=== PATIENT | male | born 1970 | race Caucasian/White ===

== ENCOUNTER 2020-08-09 17:36 | Emergency (ER) | payer OTHER, SELFPAY ==
[2020-08-09 17:44] VITALS: BP 156/97; PULSE 73; RESP 16; TEMP 36.7; O2SAT 99; BMI 27.1
--- NOTE | 2020-08-09 18:30 | ED_ITS ---
HPI - Wound/Laceration General Chief Complaint: Wound/Laceration Stated Complaint: laceration Source: patient Mode of arrival: ambulatory Limitations: no limitations History of Present Illness HPI narrative: Patient presents to ED for left index finger laceration due to snow brush that made of aluminum. Patient states last tetanus shot was more than 5 years. Patient states able to flex and extend finger and has no numbness or tingling. Related Data Allergies Allergy/AdvReac Type Severity Reaction Status Date / Time amoxicillin Allergy Rash Verified 08/09/20 17:46 Penicillins [PCN] Allergy Rash Verified 08/09/20 17:46 Review of Systems Review of Systems: Yes all other systems are reviewed and are negative Constitutional: Constitutional: Reports as per HPI and Reports no additional constitutional complaints Eyes: Eyes: Reports as per HPI and Reports no additional eye complaints ENT: Reports system reviewed and no additional complaints, except as documented and Reports as per HPI Cardiovascular: Cardiovascular: Reports as per HPI and Reports no additional cardiovascular complaints Respiratory: Respiratory: Reports as per HPI and Reports no additional respiratory complaints Gastrointestinal: Gastrointestinal: Reports as per HPI and Reports no a dditional gastrointestinal complaints Genitourinary: Genitourinary: Reports no additional male genitourinary complaints and Reports as per HPI Musculoskeletal: Musculoskeletal: Reports no additional musculoskeletal compl aints and Reports as per HPI Comments: Left index finger laceration Neurologic: Reports system reviewed and no additional complaints, except as documented and Reports as per HPI [facility] Past Medical History Medical History No known health problems Social History Social History Smoking Status: Never smoker Use of substances other than those prescribed or required for medical reasons: No Advance Directives: No Advance Directives Information Provided: No Physical Exam Vital Signs: Vital Signs: Last Vital Signs Temp 98.0 F 08/09/20 17:44 Pulse 73 08/09/20 17:44 Resp 16 08/09/20 17:44 BP 156/97 H 08/09/20 17:44 Pulse Ox 99 08/09/20 17:44 Body Mass Index 27.1 Const: General: cooperative, healthy appearing, comfortable, no acute distress, well developed, alert and awake Orientation/consciousness: patient oriented x3 HENMT: Head: Yes normal to inspection, Yes No palpable skull fracture present, Yes normocephalic, Yes atraumatic, No abrasion, No Christianson's sign, No contusion, No cranial bruits, No hematoma, No laceration, No occipital foramen tenderness, No palpable skull fracture, No raccoon eyes, No scalp tenderness, No Temporal artery tenderness present and No periorbital ecchymosis Eyes: General: appearance normal, both eyes and all related structures Neck: Neck: Yes normal visual inspection, Yes full ROM, Yes no lymphadenopathy, Yes no meningeal signs, Yes trachea midline, Yes supple and No tender Chest: Chest palpation & inspection: normal inspection of the chest and normal palpation of entire chest wall Resp: Effort & Inspection: normal respiratory effort and able to speak in complete sentences Auscultation: clear to auscultation bilaterally Cardio: Jugular venous distension: no JVD Heart sounds: S1 normal heart sound present and S2 normal heart sound present GI: Inspection: Yes normal to inspection and No abdominal wall ecchymosis Palpation (GI): Soft to palpation, not firm, nontender, no guarding and not rigid : General: No CVA tenderness and Yes no CVA tenderness Back/Spine/Pelvis: Back: no CVA tenderness, No CVA tenderness and No back tenderness Skin: Other: Left index superficial laceration on Edwards aspect of the DIP. The skin is dee, , friable and nonviable. Patient has complete flexion and extension of left index finger. Rest of hand negative for signs of trauma. Capillary refill of fingers intact. Radial pulse intact. Negative for signs of tendon injury. Motor/neuro/vascular exam is intact Right hand normal and motor/neuro/vascular exam is intact. General skin exam: no rashes or lesions noted and elasticity normal Neuro: General: patient oriented x3, no meningeal signs and CN's II-XI intact bilaterally Cranial nerves: Yes CN's II-XII intact bilaterally Extrem: Other: Left index laceration at the palm aspect of DIP. Laceration is very superficial. Skin is , agree, and nonviable. Skin is friable. No indication for laceration repair. Patient has complete flexion and extending of left index finger. Negative for signs of tendon injury. Capillary refill intact. Negative for nail bed injury. Rest of hand normal negative for signs of trauma. General: Yes normal to inspection and Yes full ROM Psych: Appearance: grossly normal, well kempt and not disheveled Course Course Course Narrative: Superficial laceration repair. X-ray not indicated. Reevaluation(s) Reevaluation #1: Laceration repair not indicated. Skin is , dee, friable, and nonviable. Patient informed when this occurred skin would just fall off. Patient will be given tetanus injection. Laceration will be clean by nurse and xerform will be placed from a pressure dressing will be placed. Time: 18:43 MDM - Wound/Laceration MDM Narrative Medical decision making narrative: Superficial laceration Discharge Plan Discharge Clinical Impression: Laceration Patient Disposition: Home, Self-Care Instructions: Laceration Without Closure (ED) Additional Instructions: Return to ED for any swelling, redness, pus discharge, fever, chills, or any other concerning symptoms. Take [id number] Motrin or Tylenol for pain Interventions: ED Discharge Assessment Last Done: 08/09/20 19:25 Discharge Date/Time: 08/09/20 19:27 Print Language: Citizen Of [place]
== END 2020-08-09 19:27 | disposition home or self-care (01) ==
PROVIDERS: Emergency Provider Internal Medicine
DX: S61.211A Laceration without foreign body of left index finger without damage to nail, initial encounter (principal); W45.8XXA Other foreign body or object entering through skin, initial encounter; Y93.29 Activity, other involving ice and snow; Y92.014 Private driveway to single-family (private) house as the place of occurrence of the external cause; Y99.9 Unspecified external cause status
CPT/HCPCS: 90471; 90715; 99284

== ENCOUNTER 2023-04-09 13:21 | Emergency (ER) | payer OTHER, SELFPAY ==
[2023-04-09 13:28] VITALS: BP 132/102; PULSE 74; RESP 18; TEMP 36.8; O2SAT 97; BMI 29.4
--- NOTE | 2023-04-09 13:29 | ED.GENADULT ---
HPI - General Adult General Chief complaint: Back Pain/Injury Stated complaint: Back pain Time Seen by Provider: 04/09/23 14:07 Source: patient Mode of arrival: ambulatory Limitations: no limitations History of Present Illness HPI narrative: 52-year-old male previously healthy here with complaints of right lower back pain with radiation of the right leg since with no known injury or trauma. Patient reports he has been taking ibuprofen, Flexeril at night time, alternating he denies with continued symptoms. No numbness in the groin. No numbness or tingling in the legs. No bowel or bladder incontinence. No fevers or chills. Patient is ambulatory. Related Data Previous Rx's Medication Instructions Recorded ibuprofen 600 mg tablet 600 mg PO Q8H PRN pain #30 tabs 04/09/23 lidocaine 5 % topical patch 1 patch topical DAILY #15 ea 04/09/23 (Lidoderm) Allergies Allergy/AdvReac Type Severity Reaction Status Date / Time amoxicillin Allergy Rash Verified 08/09/20 17:46 Penicillins [PCN] Allergy Rash Verified 08/09/20 17:46 Review of Systems Review of Systems: Yes all other systems are reviewed and are negative Constitutional: Constitutional: Reports no additional constitutional complaints, Denies body ache(s), Denies chills, Denies fever(s), Denies headache(s) and Denies weakness Eyes: Eyes: Reports no additional eye complaints and Denies change in vision ENT: Reports system reviewed and no additional complaints, except as documented, Denies dizziness, Denies headache(s), Denies nasal congestion, Denies nasal discharge and Denies neck pain Cardiovascular: Cardiovascular: Reports no additional cardiovascular complaints, Denies chest pain, Denies leg edema and Denies dyspnea Respiratory: Respiratory: Reports no additional respiratory complaints, Denies cough and Denies dyspnea Gastrointestinal: Gastrointestinal: Reports no additional gastrointestinal complaints, Denies abdominal pain, Denies diarrhea, Denies nausea and Denies vomiting Genitourinary: Genitourinary: Denies urinary incontinence Musculoskeletal: Musculoskeletal: Reports no additional musculoskeletal complaints, Reports back pain, Denies arthralgias, Denies joint swelling, Denies neck pain, Denies numbness, Reports radiating pain into limb and Denies tingling Integumentary/Breasts: Skin/Breast: Reports system reviewed and no additional complaints, except as docu and Denies rash Neurologic: Reports system reviewed and no additional complaints, except as documented, Denies Abnormal speech present, Denies dizziness, Denies headache(s), Denies numbness, Denies tingling and Denies weakness PMFSH Past Medical History Attestation statement: The following information was validated with the patient. Source: old records reviewed and nursing notes reviewed Medical History No known health problems Social History Social History Advance Directives: No Advance Directives Information Provided: Yes Physical Exam ED Vital Signs: Vital Signs - 24 hr 04/09/23 13:28 Temperature 98.3 F Pulse Rate 74 Respiratory Rate 18 Blood Pressure 132/102 H Pulse Oximetry 97 Oxygen Delivery Method Room Air BMI result Body Mass Index 29.4 Const General: cooperative, healthy appearing, comfortable and no acute distress Orientation/consciousness: patient oriented x3 Limitations: no limitations HENMT Head: Yes normal to inspection Ears: hearing grossly normal bilaterally General nose exam: Normal external nose present Face and sinus: Yes normal facial exam Mouth: Normal oral and palatal mucosa present Throat: Yes posterior oropharynx normal Eyes General: appearance normal, both eyes and all related structures Pupils: Equal, round and reactive pupils present Neck Neck: Yes normal visual inspection Chest Chest palpation & inspection: normal inspection of the chest Resp Effort & Inspection: normal respiratory effort Auscultation: clear to auscultation bilaterally Cardio Rate: regular rate Rhythm: regular rhythm Peripheral pulses: Peripheral pulses 2+ throughout GI Inspection: Yes normal to inspection Palpation (GI): Soft to palpation and nontender Auscultation: normal bowel sounds Back/Spine/Pelvis Other: Tenderness to the right lumbar paraspinal area with no midline tenderness, step-offs deformities. Pain is worsened with right straight leg raise. Thoracic/Lumbar Spine: thoracic and lumbar spine normal to inspection Skin General skin exam: no rashes or lesions noted Neuro General: patient oriented x3, moves all extremities, no focal motor deficits and normal sensation to monofilament Cranial nerves: Yes CN's II-XII intact bilaterally, Yes Equal, round and reactive pupils present, Yes Bilaterally intact EOM present, Yes Nystagmus not present, Yes Normal facial strength present and Yes Midline tongue present Cognition (Neuro): normal cognition Speech: No Abnormal speech present Gait exam (Neuro): Normal gait present Motor exam (neuro): 5/5 motor strength present throughout Sensory Exam: Normal double simultaneous stimulation for sensation Deep tendon reflexes (DTR's): Right patellar reflex intensity grade: 2+ and Left patellar reflex intensity grade: 2+ Extrem General: Yes normal to inspection Course Course Course Narrative: RME: right lower back pain radiating leg. patient head three cracks in lumbar spine. Spine xray ordered. Medical Decision Making Medical Decision Making [facility] Narrative: 52-year-old male previously healthy here with complaints of right lower back pain with radiation of the right leg since with no known injury or trauma. Patient reports he has been taking ibuprofen, Flexeril at night time, alternating he denies with continued symptoms. No numbness in the groin. No numbness or tingling in the legs. No bowel or bladder incontinence. No fevers or chills. Patient is ambulatory. Tenderness to the right lumbar paraspinal area with no midline tenderness, step-offs deformities. Pain is worsened with right straight leg raise. Normal neurological exam with no focal deficits. Likely lumbar radiculopathy. Patient has Flexeril with him. We recommend that he could take it 3 times a day as needed. Will also recommend adding had said and medicated patches as needed. Reviewed worrisome signs and symptoms of when to return to the emergency room. Comfortable plan for discharge home. Differential Diagnosis Differential Diagnoses: The differential diagnosis associated with the presentation includes Lumbar radiculopathy low concern for cord compression, cauda equina, epidural abscess, malignancy with normal neuro exam with no focal deficits, no history of IV drug abuse or immunocompromised state low concern for fracture with no reports of trauma Admission/Observation Consideration of admission/observation: Escalation of care including admission/observation considered low concern for cord compression, cauda equina, epidural abscess, malignancy with normal neuro exam with no focal deficits so no need for advanced imaging, emergent neurosurgery consultation and or admission or transfer to tertiary care center Tests considered The following testing was considered but not selected: low concern for cord compression, cauda equina, epidural abscess, malignancy with normal neuro exam with no focal deficits so no need for advanced imaging Prescription Management I considered prescription management with: Pain Medication Discharge Plan Discharge Clinical Impression: Lumbar radiculopathy Patient Disposition: Home, Self-Care Instructions: Lumbar Radiculopathy (ED) Additional Instructions: Heat or ice Gentle stretching No heavy lifting or bending Continue the Flexeril 3 times a day as needed Take the prescribed medications as needed follow-up with primary care doctor for any continued symptoms. Prescriptions: New ibuprofen 600 mg tablet 600 mg PO Q8H PRN (Reason: pain) Qty: 30 0RF lidocaine [Lidoderm] 5 % adhesive patch,medicated 1 patch topical DAILY Qty: 15 0RF Rx Instructions: leave on most painful area for up to 12 hrs Referrals: Roby Pelayo III, MD [Primary Care Provider] - 5 days Stand Alone Forms: Work/School Release Interventions: ED Discharge Assessment Last Done: 04/09/23 14:46 Discharge Date/Time: 04/09/23 14:46
== END 2023-04-09 14:46 | disposition home or self-care (01) ==
PROVIDERS: Emergency Provider Emergency Medicine; PCP Internal Medicine
DX: M54.16 Radiculopathy, lumbar region (principal); M54.50 Low back pain, unspecified
CPT/HCPCS: 99282

== ENCOUNTER 2023-09-24 11:08 | Emergency (ER) | payer BC, SELFPAY ==
--- NOTE | 2023-09-24 11:13 | ED_ITS ---
HPI - Skin/Abscess/Foreign Bdy General Chief complaint: Skin/Abscess/Foreign Body Stated complaint: Infection on chin Time Seen by Provider: 09/24/23 11:18 Source: patient and RN notes reviewed Mode of arrival: ambulatory Limitations: no limitations History of Present Illness HPI narrative: 52 year old male presents to the ED for evaluation of infection to chin x2 days. Patient states that this often occurs. He admits that he is typically evaluated at urgent care and placed on antibiotics with resolution. He began noticing some swelling to his chin approximately 2 days ago and decided to come in for evaluation. Denies drainage from the area. Denies new soaps, lotions, detergents. Denies any skin cuts sustained while shaving his face. Denies recent abx. Denies recent medication changes. Denies fever, chills, pain, eye pain, ear pain, rashes. Related Data Previous Rx's Medication Instructions Recorded ibuprofen 600 mg tablet 600 mg PO Q8H PRN pain #30 tabs 04/09/23 lidocaine 5 % topical patch 1 patch topical DAILY #15 ea 04/09/23 (Lidoderm) cephalexin 500 mg capsule 500 mg PO BID 7 days #14 caps 09/24/23 doxycycline hyclate 100 mg tablet 100 mg PO BID 7 days #14 tabs 09/24/23 Allergies Allergy/AdvReac Type Severity Reaction Status Date / Time amoxicillin Allergy Rash Verified 08/09/20 17:46 lamotrigine [From Lamictal] Allergy Rash Verified 09/24/23 11:13 oxcarbazepine Allergy Rash Verified 09/24/23 11:14 [From Trileptal] Penicillins [PCN] Allergy Rash Verified 08/09/20 17:46 Review of Systems Review of Systems: Constitutional: No fever, chills, fatigue, night sweats, weight changes ENT/Mouth: No ear pain, hearing loss, nasal congestion, sinus pain, rhinorrhea, sore throat Eyes: No eye pain, swelling, redness, vision changes, discharge Cardio: No chest pain, palpitations, RUELAS, orthopnea, peripheral edema Pulm: No SOB, cough, sputum, wheezing, dyspnea, hemoptysis GI: No nausea, vomiting, hematemesis, abdominal pain, diarrhea, constipation, hematochezia, melena : No irregular bleeding, dysuria, frequency, urgency, hesitancy, hematuria, flank pain, urinary flow changes, urinary incontinence or retention MSK: No back pain, neck pain, joint pain, myalgias Skin: No lesions, rashes, +skin infection Neuro: No weakness, numbness, paresthesias, LOC, dizziness, headache Psych: No anxiety/panic, depression, SI/HI, AH/VH All other systems reviewed and are negative. [facility] Past Medical History Attestation statement: The following information was validated with the patient. Source: old records reviewed and nursing notes reviewed Medical History No known health problems Social History Social History Advance Directives: No Advance Directives Information Provided: Yes Physical Exam Vital Signs: Vital Signs: Last Vital Signs Temp 97.7 F 09/24/23 11:40 Pulse 69 09/24/23 11:40 Resp 18 09/24/23 11:40 BP 137/64 09/24/23 11:40 Pulse Ox 98 09/24/23 11:40 O2 Del Method Room Air 09/24/23 11:40 BMI result Body Mass Index 28.5 HEENT: Other: + 4cm x 2cm area of induration noted to the anterior chin. Mildly erythematous. No open wound or sores. No pointing. No weaping. No palpable fluctuance. No sloughing. Spares mucous membranes. Spares palms/soles, webbed spaces. Oropharynx with poor dentition, multiple caries. No broken teeth. No obvious periapical abscess. No tenderness or palpable fluctuance along lingual or buccal gingiva. No cervical, submental or submandibular LAD. No anterior neck swelling. Ears: hearing grossly normal bilaterally, external ears normal, TM's normal bilaterally, EAC's normal, mastoids normal and no periauricular adenopathy General nose exam: Normal external nose present Teeth and gingiva: caries and poor dentition Eyes: General: appearance normal, both eyes and all related structures Conjunctivae: conjunctivae normal Sclerae: sclerae normal Pupils: Equal, round and reactive pupils present Neck: Other: + no anterior neck swelling Neck: Yes normal visual inspection and Yes no lymphadenopathy Resp: Effort & Inspection: normal respiratory effort and able to speak in complete sentences Auscultation: clear to auscultation bilaterally Cardio: Rate: regular rate Rhythm: regular rhythm Skin: Other: + refer to above Neuro: Cranial nerves: Yes Equal, round and reactive pupils present Course Course Course Narrative: 1127-- exam consistent with cellulitis. no concern for abscess as there is no palpable fluctuance. He is afebrile. I will send both doxy and keflex to pharmacy for treatment. patient is noted to have an allergy to amoxicillin ho chelover tells me that he has been placed on keflex in the past and tolerated this well. Patient has remained stable throughout ED visit today. Discussed worrisome signs and symptoms and when to return to the ED. All questions answered at this time. Patient is agreeable with disposition and stable for discharge. Medical Decision Making Medical Decision Making MDM Narrative: 52 year old male presents to the ED for evaluation of infection to chin x2 days. Vital signs stable, afebrile. Patient is nontoxic-appearing and in no acute distress. On exam, there is a 4cm x 2cm area of induration noted to the anterior chin. Mildly erythematous. No open wound or sores. No pointing. No weaping. No palpable fluctuance. No sloughing. Spares mucous membranes. Spares palms/soles, webbed spaces. Oropharynx with poor dentition, multiple caries. No broken teeth. No obvious periapical abscess. No tenderness or palpable fluctuance along lingual or buccal gingiva. No cervical, submental or submandibular LAD. No anterior neck swelling. Differential diagnosis includes cellulitis, folliculitis, contact dermatitis. Unlikely abscess, medication reaction, SJS/TEN, scabies, HSV, zoster, Maxwell's angina, dental abscess, periapical abscess. Plan for discharge w/ antibiotics. Differential Diagnosis Differential Diagnoses: The differential diagnosis associated with the presentation includes as above. Admission/Observation not indicated. Prescription Management I considered prescription management with: Antibiotic (Doxy, Keflex) Social Determinants Patient?s care significantly limited by Social Determinants of Health including: Other Social Determinant of Health Discharge Plan Discharge Clinical Impression: Cellulitis Qualifiers: Site of cellulitis: face Qualified Code(s): L03.211 - Cellulitis of face Patient Disposition: Home, Self-Care Instructions: Cellulitis (ED), Warm Compress or Soak (ED) Additional Instructions: You are noted to have a skin infection to your chin termed cellulitis . Doxycycline is an antibiotic that has been sent to your pharmacy. Take this as directed over the next 7 days. Do not skip any doses or stop taking this early as this may cause infection to return or worsen. On doxycycline, do not take pills immediately before going to bed and swallow pills with plenty of water. Avoid direct sunlight, iron, antacids, and Pepto Bismol. Call your provider if you develop new ringing in your ears, new problems hearing, dizziness, difficulty swallowing, rash, abdominal discomfort, nausea, or diarrhea. Cephalexin is another antibiotic that has been sent to your pharmacy. Take this as directed over the next 7 days. Do not skip any doses or stop taking this early this may cause infection to return or worsen. Please follow up with PCP within 2 weeks. If symptoms persist or worsen please return to the ED. In the case of emergency call 911. Prescriptions: New cephalexin 500 mg capsule 500 mg PO BID 7 Days Qty: 14 0RF doxycycline hyclate 100 mg tablet 100 mg PO BID 7 Days Qty: 14 0RF No Action ibuprofen 600 mg tablet 600 mg PO Q8H PRN (Reason: pain) Qty: 30 0RF lidocaine [Lidoderm] 5 % adhesive patch,medicated 1 patch topical DAILY Qty: 15 0RF Rx Instructions: leave on most painful area for up to 12 hrs Referrals: Physician,Kellee J [Primary Care Provider] - Interventions: ED Discharge Assessment Last Done: 09/24/23 11:40 Discharge Date/Time: 09/24/23 11:40
[2023-09-24 11:14] VITALS: BP 137/64; PULSE 69; RESP 18; TEMP 36.5; O2SAT 98; BMI 28.5
[2023-09-24 11:40] VITALS: BP 137/64; PULSE 69; RESP 18; TEMP 36.5; O2SAT 98
== END 2023-09-24 11:40 | disposition home or self-care (01) ==
PROVIDERS: Emergency Provider Emergency Medicine
DX: L03.211 Cellulitis of face (principal); Z88.0 Allergy status to penicillin
CPT/HCPCS: 99282; 99283